=== PATIENT | female | born 1970 | race Caucasian/White ===

== ENCOUNTER → 2020-11-25 | Outpatient (CLI) | payer OTHER ==
--- NOTE | 2020-11-26 14:47 | RAD ---
DATE: 11/25/2020 8:00 AM EXAM: MAMMO KAREN SCREENING BILATERAL HISTORY: Screening COMPARISON: 11/07/2017 Bilateral CC and MLO views of the breasts were performed. Bilateral breast tomosynthesis was performed in CC and MLO projections. This study was interpreted with the benefit of Computerized Aided Detection (CAD). FINDINGS: Breast Density: DENSE The breast Parenchyma is dense, which could reduce the sensitivity of mammography. Breast parenchyma level density D. Negative left mammogram. A focal asymmetry right breast is best seen on the tomographic images on cc image 16 of 45 and MLO tomographic image 16 of 46. There may be associated punctate microcalcifications. IMPRESSION: Right breast focal asymmetry, findings for which additional imaging is advised. BI-RADS CATEGORY: 0 INCOMPLETE: NEEDS ADDITIONAL IMAGING EVALUATION AND/OR PRIOR MAMMOGRAMS FOR COMPARISON. RECOMMENDED FOLLOW-UP: ADD ADDITIONAL IMAGING The patient will be contacted to return for additional imaging and a supplemental report will follow. PQRS compliance statement: Patient information was entered into a reminder system with a target due date for the next mammogram. Mammography is a sensitive method for finding small breast cancers, but it does not detect them all and is not a substitute for careful clinical examination. A negative mammogram does not negate a clinically suspicious finding and should not result in delay in biopsying a clinically suspicious abnormality. "Our facility is accredited by the [employer] Mammography [employer]."
== END ==
LOC: MAMMO 07:49
PROVIDERS: ATTEND Nurse Practitioner Family
DX: Z12.31 Encounter for screening mammogram for malignant neoplasm of breast (principal)
CPT/HCPCS: 77063; 77067

== ENCOUNTER → 2021-01-19 | Outpatient (CLI) | payer OTHER ==
--- NOTE | 2021-01-19 15:05 | RAD ---
EXAM: Right breast diagnostic mammogram; right breast sonogram. HISTORY: 50-year-old female presents for evaluation of a right breast mass demonstrated on a mammogra m performed 11/25/2020. TECHNIQUE: Full-field and spot compression views of the right breast are obtained. Sonographic imagin g of the right breast targeted to the site of mammographic concern was also performed. COMPARISON: 11/25/2020 BREAST PARENCHYMAL DENSITY: Level 4. FINDINGS: There is a persistent mass within the 10:00 position of the right breast with additional ma mmographic views. There is no suspicious calcification or architectural distortion. Sonographic imaging of the right breast demonstrates a circumscribed solid appearing nonvascular nodu le with posterior through transmission at the 10:00 position 5 cm from nipple measuring 1.4 cm in max imum dimension. The sonographic appearance favors a fibroadenoma. This corresponds with the mammograp hic finding of concern. There is dense breast parenchyma. There are benign-appearing axillary lymph n odes. IMPRESSION: 1. 1.4 cm suspected fibroadenoma at the 10:00 position of the right breast. 2. BI-RADS Category 3: Probably benign finding(s). Short term follow up with a right breast sonogram in 6 months is recommended to confirm stability. If your mammogram demonstrates that you have dense breast tissue, which could hide abnormalities, and if you have other risk factors for breast cancer that have been identified, you might benefit from s upplemental screening tests that may be suggested by your ordering physician. Dense breast tissue, i n and of itself, is a relatively common condition. This information is not provided to cause undue c oncern, but rather to raise your awareness and to promote discussion with your physician regarding th e presence of other risk factors, in addition to dense breast tissue. A report of your mammography re sults will be sent to you and your physician. You should contact your physician if you have any ques tions or concerns regarding this report. Mammography is a sensitive method for finding small breast cancers, but it does not detect them all a nd is not a substitute for careful clinical examination. A negative mammogram does not negate a clin ically suspicious finding and should not result in delay in biopsying a clinically suspicious abnorma lity. PQRS compliance statement - Patient information was entered into a reminder system with a target due date for the next mammogram. "Our facility is accredited by the [employer] Mammography [employer]." Electronically signed by: Lourdes Zhou MD (01/19/2021 3:02 PM) [id number]
== END ==
LOC: MAMMO 14:15
PROVIDERS: ATTEND Nurse Practitioner Family
DX: N63.21 Unspecified lump in the left breast, upper outer quadrant (principal)
CPT/HCPCS: 76641; 77065

== ENCOUNTER → 2021-07-20 | Outpatient (CLI) | payer OTHER ==
--- NOTE | 2021-07-20 15:22 | RAD ---
EXAM: Right breast sonogram. HISTORY: 51-year-old female presents for follow-up evaluation of a right breast nodule demonstrated o n a prior sonogram dated 01/19/2021. TECHNIQUE: Sonographic imaging of the right breast targeted to the site of abnormality was performed. COMPARISON: 01/19/2021. FINDINGS: There is a solid circumscribed nonvascular hypoechoic mass at the 10:00 position 5 cm measu ring 1.5 x 1.3 x 1.2 cm. This previously measured 1.4 x 1.3 x 1.1 cm. The minimal interval change may be attributable to the site differences in measurement technique. No new lesion is seen. IMPRESSION: 1. 1.5 cm solid circumscribed nonvascular hypoechoic mass at the 10:00 position 5 cm from the nipple, not significantly changed compared to the prior study with allowing for differences in measurement t echnique. The sonographic appearance and stability favors a benign fibroadenoma. Continued short-term follow-up in 6 month intervals is recommended to confirm a two-year course of stability. 2. BI-RADS Category 3: Probably benign finding(s). Short term follow up with a right breast sonogram in 6 months is recommended. This follow up interval [facility]. Electronically signed by: Lourdes Zhou MD (07/20/2021 3:20 PM) [id number]
== END ==
LOC: US 14:52
PROVIDERS: ATTEND Nurse Practitioner Family
DX: N63.11 Unspecified lump in the right breast, upper outer quadrant (principal)
CPT/HCPCS: 76642

== ENCOUNTER → 2022-01-31 | Outpatient (CLI) | payer OTHER ==
--- NOTE | 2022-01-31 14:04 | RAD ---
EXAM: Right breast sonogram. HISTORY: 51-year-old female presents for evaluation of findings within the right breast demonstrated on prior sonograms. TECHNIQUE: Sonographic imaging of the right breast targeted to the site of prior concern was ivis avila. COMPARISON: 07/20/2021, 01/19/2021. FINDINGS: There is a solid circumscribed hypoechoic nonvascular nodule with smooth lobulation at the 10:00 position 5 cm from the nipple measuring 1.6 x 1.4 x 1.3 cm. This previously measured 1.5 x 1.3 x 1.2 cm. No new lesion is seen. IMPRESSION: 1. Minimal interval increase in the size of a 1.6 cm nodule within the 10:00 position of the right br east 5 cm from the nipple, a component of which may be due to differences in measurement technique. T his maintains benign sonographic features favoring a fibroadenoma. 2. BI-RADS Category 3: Probably benign finding(s). Continued short-term follow-up with a] breast sono gram in 6 months is recommended to confirm longer-term stability. Note is made that the patient is du e for bilateral screening mammography and will return at her earliest convenience for this exam. Electronically signed by: Lourdes Zhou MD (01/31/2022 2:02 PM) [id number]
== END ==
LOC: MAMMO 13:06
PROVIDERS: ATTEND Nurse Practitioner Family
DX: N63.11 Unspecified lump in the right breast, upper outer quadrant (principal); D24.1 Benign neoplasm of right breast
CPT/HCPCS: 76641

== ENCOUNTER → 2022-02-08 | Outpatient (CLI) | payer OTHER ==
--- NOTE | 2022-02-09 15:43 | RAD ---
EXAM: BILATERAL DIGITAL 3D SCREENING MAMMOGRAPHY. HISTORY: Routine mammographic screening. TECHNIQUE: Bilateral digital 3D and tomographic images were obtained in CC and MLO projections. Compu ter-aided detection was applied. COMPARISON: 11/25/2020. COMPOSITION: D. The breasts are extremely dense, which lowers the sensitivity of mammography. FINDINGS: Circumscribed/obscured nodules bilaterally are stable and benign. A small fat density focus centrally in the left breast may be normal fat or a small lipoma. There are no suspicious masses, mi crocalcifications or architectural distortion. The parenchymal pattern is stable. BI-RADS CATEGORY 2: Benign. RECOMMENDATION: 1. Routine screening mammography in one year. If mammography demonstrates dense breast tissue (heterogenously dense or extremely dense, category C or D), which could hide abnormalities, and if other risk factors for breast cancer have been identifi ed, supplemental screening tests that may be suggested by the ordering physician may be of benefit. D ense breast tissue, in and of itself, is a relatively common condition. Therefore, this information i s not provided to cause undue concern, but rather to raise awareness and to promote discussion with t he referring physician regarding the presence of other risk factors, in addition to dense breast tiss ue. The results of this mammography examination is provided to the patient and referring physician. T he patient should contact their referring physician if any questions or concerns exist regarding this report. PQRS compliance statement - Patient information was entered into a reminder system with a target due date for the next mammogram. "Our facility is accredited by the [employer] Mammography [employer]." Electronically signed by: Kylee Brown MD (02/09/2022 3:41 PM) [id number]
== END ==
LOC: MAMMO 11:51
PROVIDERS: ATTEND Nurse Practitioner Family
DX: Z12.31 Encounter for screening mammogram for malignant neoplasm of breast (principal); N63.10 Unspecified lump in the right breast, unspecified quadrant
CPT/HCPCS: 77063; 77067